=== PATIENT | female | born 1945 | race Caucasian/White ===

== ENCOUNTER → 2018-03-09 | Outpatient (CLI) | payer OTHER | LOC: FIMAGING 09:54 | PROVIDERS: ATTEND Internal Medicine | DX: J32.9 Chronic sinusitis, unspecified (principal); J34.2 Deviated nasal septum; J34.89 Other specified disorders of nose and nasal sinuses ==

== ENCOUNTER → 2018-04-20 | Outpatient (CLI) | payer OTHER | LOC: FIMAGING 09:36 | PROVIDERS: ATTEND Internal Medicine | DX: M77.31 Calcaneal spur, right foot (principal) ==